=== PATIENT | female | born 1985 | race Caucasian/White ===

== ENCOUNTER 2023-07-06 11:50 | Inpatient (IN) | payer OTHER ==
[~2023-07-06] VITALS: Ht 149.9 cm; Wt 70.8 kg
[2023-07-06] MEDS ORDERED: PRENATAL + DHA1 EAC1 PO (12:11)
== END 2023-07-08 14:47 | disposition home or self-care (01) | DRG 833 ==
LOC: OBS/DEL 11:50 → LDR 16:58
PROVIDERS: ADMIT Obstetrics & Gynecology; ATTEND Obstetrics & Gynecology
PROC: 4A1HXCZ Monitoring of Products of Conception, Cardiac Rate, External Approach (ICD-10-PCS; principal; 2023-07-06)
PROC: BY4FZZZ Ultrasonography of Third Trimester, Single Fetus (ICD-10-PCS; 2023-07-06)
DX: O60.03 Preterm labor without delivery, third trimester (principal); Z3A.32 32 weeks gestation of pregnancy; Z20.822 Contact with and (suspected) exposure to COVID-19